=== PATIENT | female | born 1950 | race Caucasian/White ===

== ENCOUNTER 2019-03-14 05:40 | Observation (INO) ==
[2019-03-01 08:27] LABS: URINE SOURCE CLEAN CATCH
--- NOTE | 2019-03-01 08:29 | EKG Report ---
Test Performed on : 03/01/2019 07:57:04 AM Test Reason : PAT Blood Pressure : / mmHG Vent. Rate : 077 BPM Atrial Rate : 077 BPM P-R Int : 162 ms QRS Dur : 082 ms QT Int : 390 ms P-R-T Axes : 046 030 058 degrees QTc Int : 441 ms Normal sinus rhythm. Nonspecific T wave abnormality Abnormal ECG No previous ECGs available Confirmed by [place] ZURITA, Acosta ([id number]) on 03/01/2019 8:53:42 AM
[2019-03-01 08:38] LABS: BASO# 0.05 X1000 (0.0-0.2); BASO% 0.7 % (0.0-0.8); BILIRUBIN URINE NEGATIVE (NEGATIVE); BLOOD URINE NEGATIVE (NEGATIVE); COLOR YELLOW; EOS# 0.27 X1000 (0.0-0.7); EOS% 3.5 % (0.0-10.0); GLUCOSE URINE NEGATIVE (NEGATIVE); HEMATOCRIT 43.1 % (37.0-47.0); HEMOGLOBIN 13.2 g/dL (12.0-16.0); KETONE URINE NEGATIVE (NEGATIVE); LEUKOCYTES URINE SMALL (NEGATIVE); LYMPH# 2.57 X1000 (1.2-3.4); LYMPH% 33.6 % (20.5-51.1); MCH 27.9 PG (27-31); MCHC 30.6 g/dL (33-37); MCV 91.1 FL (81-99); MONO# 0.59 X1000 (0.11-0.59); MONO% 7.7 % (1.7-9.3); NEUT# 4.17 X1000 (1.4-6.5); NEUT% 54.5 % (42.2-75.2); NITRITE URINE NEGATIVE (NEGATIVE); PLT 330 X1000 (130-400); PROTEIN URINE TRACE mg/dL (NEGATIVE); RBC 4.73 XMIL (4.2-5.4); RDW 16.1 % (11.5-14.5); SP GRAVITY URINE 1.022; TURBIDITY URINE HAZY (CLEAR); UR EPITHELIAL CELLS >10 /HPF (<10); URINE BACTERIA NEGATIVE /HPF; URINE RBC <10 /HPF (<10); URINE WBC <10 /HPF (<10); UROBILINOGEN URINE NORMAL (NORMAL); WBC 7.65 X1000 (4.8-10.8)
[2019-03-01 08:45] LABS: INR 0.89; PROTIME 12.8 Seconds (11.0-16.0)
[2019-03-01 08:46] LABS: PTT 26.6 Seconds (22.3-41.8)
[2019-03-01 09:03] LABS: CALCIUM 9.6 mg/dL (8.8-10.2); CREATININE 1.1 mg/dL (0.5-0.9); POTASSIUM 5.2 mmol/L (3.5-5.1)
[2019-03-14] MEDS ORDERED: DURAMORPH ONE (06:47)
[2019-03-14] MEDS ORDERED: MARCAINE 0.25% PF ONE (06:48)
[2019-03-14] MEDS ORDERED: SODIUM CHLORIDE 0.9% ONE (06:48)
[2019-03-14] MEDS ORDERED: NEOSPORIN G.U. IRRIGANT ONE (06:48)
[2019-03-14] MEDS ORDERED: CYKLOKAPRON 1,000 MG/NS 1,000 MG/100 ML IVPB ONE ×2 (06:48→06:49)
[2019-03-14] MEDS ORDERED: TORADOL ONE (06:48)
[2019-03-14] MEDS ORDERED: EXPAREL 1.3% ONE (06:48)
[2019-03-14] MEDS ORDERED: PEPCID ONE (07:00)
[2019-03-14] MEDS ORDERED: LYRICA ONE (07:00)
[2019-03-14] MEDS ORDERED: REGLAN ONE (07:00)
[2019-03-14] MEDS ORDERED: CELEBREX ONE (07:00)
[2019-03-14] MEDS ORDERED: COLACE ONE (07:00)
[2019-03-14] MEDS ORDERED: VANCOMYCIN 1 GM/NS 1 GM/250 ML IVPB ONE (07:00)
[2019-03-14] MEDS ORDERED: XYLOCAINE-MPF 2% ONE (07:01)
[2019-03-14] MEDS ORDERED: ZOFRAN ONE (07:01)
[2019-03-14] MEDS ORDERED: DIPRIVAN 1% ONE ×2 (07:01→07:13)
[2019-03-14] MEDS ORDERED: LR 1,000 ML ONE (07:01)
[2019-03-14] MEDS ORDERED: DECADRON ONE ×2 (07:01→07:09)
[2019-03-14] MEDS ORDERED: ROBINUL ONE (07:01)
[2019-03-14] MEDS ORDERED: FENTANYL ONE (07:09)
[2019-03-14] MEDS: VANCOMYCIN ONE ×2 (07:17→08:45)
[2019-03-14] MEDS ORDERED: OFIRMEV 1000 MG/ISOTONIC SOLN 1,000 MG/100 ML BOTTLE ONE (07:21)
[2019-03-14] MEDS ORDERED: VERSED ONE (07:22)
[2019-03-14 08:52] LABS: URINE SOURCE CATH
[2019-03-14 08:59] LABS: BILIRUBIN URINE NEGATIVE (NEGATIVE); BLOOD URINE NEGATIVE (NEGATIVE); COLOR YELLOW; GLUCOSE URINE NEGATIVE (NEGATIVE); KETONE URINE NEGATIVE (NEGATIVE); LEUKOCYTES URINE NEGATIVE (NEGATIVE); NITRITE URINE NEGATIVE (NEGATIVE); PROTEIN URINE NEGATIVE (NEGATIVE); SP GRAVITY URINE 1.017; TURBIDITY URINE CLEAR (CLEAR); UROBILINOGEN URINE NORMAL (NORMAL)
[2019-03-14 09:00] LABS: UR EPITHELIAL CELLS <10 /HPF (<10); URINE BACTERIA NEGATIVE /HPF; URINE RBC <10 /HPF (<10); URINE WBC <10 /HPF (<10)
[2019-03-14] MEDS ORDERED: NS 1,000 ML ONE (10:02)
--- NOTE | 2019-03-14 10:17 | Diag Imaging Result Doc PS360 ---
EXAM: KNEE 1-2 VIEWS-RIGHT HISTORY: post op total knee TECHNIQUE: Right knee two views COMPARISON: None. FINDINGS: There are anterior skin lorena and there is a superior surgical drain. There has been placement of the knee. No fracture. No dislocation. IMPRESSION: Recent replacement of the right knee with good alignment to the femoral and tibial components. Electronically signed by Tayo Romo 03/14/2019 10:14 AM
[2019-03-14] MEDS: DILAUDID ONE ×2 (10:30→10:35)
[2019-03-14] MEDS ORDERED: ZOFRAN IV PRN ×2 (10:30→17:48)
[2019-03-14] MEDS ORDERED: MORPHINE IV PRN ×3 (10:30)
[2019-03-14] MEDS ORDERED: OXY IR ONE (10:31)
--- NOTE | 2019-03-14 11:41 | OPERATIVE NOTE ---
PROCEDURE DATE: 03/14/2019 PREOPERATIVE DIAGNOSIS: Degenerative joint disease right knee. POSTOPERATIVE DIAGNOSIS: Degenerative joint disease right knee. PROCEDURE PERFORMED: Right total knee replacement. SURGEON: Kerri Florentino MD. CONTROL OPERATOR FLOW COAT: TABATHA Grubbs. Mr. Jaimes was necessary for proper retraction and manipulation of the knee. ANESTHESIA: General. COMPLICATIONS: None. PROCEDURE IN DETAIL: A 68-year-old female presents for right total knee replacement. Risks, benefits, and no guarantees were discussed, and she is willing to proceed. She was taken to the operating room and satisfactory anesthesia obtained. The right knee was prepped and draped in the usual sterile fashion. A time-out was taken to confirm operative site, procedure, and patient. The leg was wrapped with an Esmarch and tourniquet inflated to 300 mmHg. A midline incision was made over the front of the knee followed by a quad tendon sparing arthrotomy. The patella was everted and resurfaced with freehand technique. It was then subluxed laterally and the knee flexed. An intramedullary hole was made in the distal femur and the distal femoral cutting block secured in 5 degrees of valgus. 9 mm of bone was taken off the distal femur. The distal femur was measured to a size 6 DePuy Attune implant. The 4 in 1 block was secured and the anterior, posterior, and chamfer cuts sequentially made. Any osteophytes were debrided about the femur. The PCL was retained. The knee was flexed and a PCL retractor placed behind the tibia to protect the PCL nerve and neurovascular bundle. The tibial cutting block was secured with extramedullary alignment and tibial resection made. Flexion and extension gaps were equal and both 5 mm of spacer. The tibia was sized to a size 5 tibial tray. A trial reduction was performed with a size 5 tibial tray, a 5 mm thick tibial poly thickness bearing, and a 6 femoral implant. Good range of motion and stability was noted. Some mild soft tissue balancing was undertaken due to some contracture of the posterior medial capsule. This was released along the edge of the tibia with good soft tissue balance. The patella was sized to a 35 medialized dome patella with midline tracking. Drill holes were placed for the patellar implant and femoral implant. All bony surfaces thoroughly irrigated with pulsatile lavage. Cement with a gram of vancomycin was utilized to cement a DePuy size 5 rotating platform tibial base plate, a size 6 right narrow cruciate retaining femoral component, and a 35 medialized dome patella. Excess cement was removed with a Sherrill elevator. While the cement cured, the joint capsule was injected with Exparel for pain management. A Hemovac drain placed. After curing the cement, a size 6, 5 mm thick cruciate retaining polyethylene bearing was inserted into the tibial tray and the knee reduced. Final range of motion was 0 to 130 degrees with midline patellar tracking. The arthrotomy was copiously irrigated and then closed over the drain with #1 Vicryl in the arthrotomy, 2-0 Vicryl in the subcutaneous, and skin lorena on the skin edges. Sterile dressings completed the closure, and the patient was recovered from anesthesia and transferred to the recovery room in stable condition. No intraoperative complications were noted. Instrument count and sponge count was correct at the time of closure. cc: Antonio Florentino MD
--- NOTE | 2019-03-14 14:17 | ORTHOPAEDICS PROGRESS NOTE ---
DATE: 03/14/2019 SUBJECTIVE DATA: Ms. Watson is postop day 0 of her right total knee arthroplasty. She reports she is doing well at this time. She reports her pain is a 0/10 at this time. She states she that she is getting some of her appetite back. She reports she has not been up with therapy at this time. OBJECTIVE DATA: The patient is sitting comfortably in the bed, eating her dinner. The bandages are clean and dry to the right lower extremity. There is roughly 20 mL of drainage in her drain. There is good sensation to the right lower extremity. There is good pedal pulses. There is good capillary refill. There is negative Homans sign. The patient is able to flex her quadriceps muscles without difficulty. ASSESSMENT: Degenerative joint disease right knee with total knee arthroplasty. PLAN: Will plan on hopefully discharging Ms Watson home tomorrow if she is doing well. We will check back on her in the morning. Dictated by TABATHA Grubbs for Antonio Florentino MD cc: TABATHA Grubbs MD
[2019-03-14] MEDS: ULTRAM PO SCH ×2 (15:50→21:08)
[2019-03-14] MEDS: TYLENOL PO SCH ×2 (15:50→21:06)
[2019-03-14] MEDS ORDERED: PNEUMOVAX 23 IM ONE (16:30)
[2019-03-14] MEDS ORDERED: VANCOMYCIN 1 GM/NS 1 GM/250 ML IVPB IV ONE (19:30)
[2019-03-14] MEDS: UROCIT-K PO SCH (21:04)
[2019-03-14] MEDS: PERIDEX MT SCH (21:06)
[2019-03-14] MEDS: COLACE PO SCH (21:11)
[2019-03-14] MEDS: CELEBREX PO SCH (21:14)
[2019-03-15] MEDS: ULTRAM PO SCH ×3 (02:58→13:33)
[2019-03-15] MEDS: TYLENOL PO SCH ×3 (02:58→13:32)
[2019-03-15] MEDS: NS 1,000 ML IV SCH (03:00)
[2019-03-15 05:59] LABS: HEMATOCRIT 32.8 % (37.0-47.0); HEMOGLOBIN 10.2 g/dL (12.0-16.0)
[2019-03-15 06:17] LABS: CALCIUM 8.2 mg/dL (8.8-10.2); CREATININE 1.6 mg/dL (0.5-0.9); POTASSIUM 5.8 mmol/L (3.5-5.1)
--- NOTE | 2019-03-15 07:55 | ORTHOPAEDICS PROGRESS NOTE ---
DATE: 03/14/2019 SUBJECTIVE: Ms Watson is seen status post total knee replacement. OBJECTIVE: Currently, she is afebrile with stable vital signs. Her bandage is clean and dry. Laboratory studies are stable and hematocrit postop is 32.8. PLAN: We will plan on mobilizing her today. Will discontinue all lines and change the bandage. She can go home this afternoon after therapy. We will see her back in roughly 12 days. She is to continue with her regular medicines. We have placed her on antibiotics for prophylaxis for 7 days as well as Peosta 10 as needed for pain and aspirin 325 twice a day for DVT prophylaxis. She is to return in the interim for any worsening signs or symptoms. cc: Antonio Florentino MD
[2019-03-15] MEDS: COLACE PO SCH (08:14)
[2019-03-15] MEDS: UROCIT-K PO SCH (08:14)
[2019-03-15] MEDS: CELEBREX PO SCH (08:14)
[2019-03-15] MEDS: PERIDEX MT SCH (08:14)
[2019-03-15] MEDS ORDERED: ASPIRIN PO SCH (09:00)
[2019-03-15] MEDS ORDERED: PATIENT'S OWN MED PO SCH (09:00)
[2019-03-15] MEDS ORDERED: PEPCID PO SCH (09:00)
[2019-03-15] MEDS ORDERED: PRINZIDE 20/12.5MG PO SCH (12:00)
[2019-03-15] MEDS ORDERED: GLUCOSAMINE 500 MG/CHONDROITIN 400 MG PO SCH (12:00)
[2019-03-15] MEDS ORDERED: LOTREL 5/20 MG PO SCH (12:00)
[2019-03-15 12:22] VITALS: BP 154/72
== END 2019-03-15 14:28 | disposition home or self-care (01) ==
LOC: OR 05:40 → 4N 05:40
PROVIDERS: ADMIT Orthopaedic Surgery Adult Reconstructive Orthopaedic Surgery; ATTEND Orthopaedic Surgery Adult Reconstructive Orthopaedic Surgery
CPT/HCPCS: 73560; 80048; 81001; 85014; 85018; 85025; 85610; 85730; 86850; 86900; 86901; 88305; 88311; 90732; 93005; 93010; 94761; 94799; 97110; 97116; 97162; 97530; A9270; C9290; J0131; J1100; J1170; J1885; J2250; J2274; J2275; J2405; J3010; J3370; J7030; J7120; Q9974; S0020